=== PATIENT | male | born 1940 | race Hispanic/Latino ===

== ENCOUNTER → 2019-09-29 | Outpatient (CLI) | payer OTHER ==
[~2019-09-29] MED LIST: AMLO10TA7 PO; ASPI-1197 PO; ATOR10 PO; FURO20TA4 PO; GLIP10TA9 PO; HYDR-2132 PO; METO50TA18 PO; SITA100T12 PO; VALS1TAB77 PO; VALS80TA2 PO; WARF5TAB76 PO
== END | disposition home or self-care (01) ==
LOC: RAH 08:14
PROVIDERS: ATTEND Internal Medicine Cardiovascular Disease
DX: Z13.6 Encounter for screening for cardiovascular disorders (principal)
CPT/HCPCS: 75571

== ENCOUNTER → 2019-11-02 | Outpatient (CLI) | payer OTHER ==
[~2019-11-02] VITALS: Ht 170.2 cm; Wt 93.4 kg
[~2019-11-02] MED LIST changes: +REGADENOSON 0.4 MG/5 ML PF SYG IVP SCH
== END | disposition home or self-care (01) ==
LOC: SHCH 08:17
PROVIDERS: ATTEND Internal Medicine Cardiovascular Disease
DX: I25.10 Atherosclerotic heart disease of native coronary artery without angina pectoris (principal)
CPT/HCPCS: 78452; 93017; 96374; A9500 ×2; J2785

== ENCOUNTER → 2021-04-13 | Outpatient (CLI) | payer OTHER ==
[~2021-04-13] MED LIST changes: +AMLO-258 PO; -AMLO10TA7 PO; -REGADENOSON 0.4 MG/5 ML PF SYG IVP SCH; +WARF5TAB PO; -WARF5TAB76 PO
== END | disposition home or self-care (01) ==
LOC: RAH 09:48
PROVIDERS: ATTEND Internal Medicine
DX: R25.2 Cramp and spasm (principal)
CPT/HCPCS: 93922

== ENCOUNTER → 2022-03-19 | Outpatient (CLI) | payer OTHER | END | disposition home or self-care (01) | LOC: RAH 08:09 | PROVIDERS: ATTEND Internal Medicine Gastroenterology | DX: R63.4 Abnormal weight loss (principal) | CPT/HCPCS: 71046 ==